=== PATIENT | female | born 1940 | race Caucasian/White ===

== ENCOUNTER 2017-01-14 12:23 | Inpatient (IN) | payer MEDICARE, OTHER ==
[~2017-01-14] VITALS: Ht 152.4 cm; Wt 83.9 kg
[2017-01-14 16:02] LABS: HEMOGLOBIN 15.6 gm/dl (12.3-15.3); RED BLOOD COUNT 5.31 M/UL (4.00-5.10); WHITE BLOOD COUNT 12.3 K/UL (4.5-11.0)
[2017-01-14] MEDS ORDERED: ALPRAZOLAM0.5 MG PO (16:13)
[2017-01-14] MEDS ORDERED: HYDRALAZINE HCL50 MG PO (16:14)
[2017-01-14] MEDS ORDERED: SINGULAIR10 MG PO (16:14)
[2017-01-14] MEDS ORDERED: WOMEN'S DAILY1 EAC1 PO (16:14)
[2017-01-14] MEDS ORDERED: DILANTIN100 MG PO (16:15)
[2017-01-14] MEDS ORDERED: K-TAB ER20 MEQ PO (16:16)
[2017-01-14] MEDS ORDERED: ZANTAC300 MG PO (16:16)
[2017-01-14] MEDS ORDERED: EVISTA60 MG PO (16:17)
[2017-01-14] MEDS ORDERED: DIOVAN HCT 3201 EAC1 PO (16:17)
[2017-01-14] MEDS ORDERED: ADVAIR 250-501 EACH INH (16:20)
[2017-01-14 16:33] LABS: BUN/CREATININE RATIO 36 (0-10)
[2017-01-14] MEDS ORDERED: FUROSEMIDE40 MG PO (18:26)
[2017-01-14] MEDS ORDERED: VITAMIN D250000 UNIT PO (18:27)
[2017-01-14] MEDS ORDERED: VOLTAREN100 GM TP (18:31)
[2017-01-15 06:06] LABS: HEMOGLOBIN 13.8 gm/dl (12.3-15.3); WHITE BLOOD COUNT 10.5 K/UL (4.5-11.0)
[2017-01-15 06:09] LABS: RED BLOOD COUNT 4.74 M/UL (4.00-5.10)
[2017-01-15 06:21] LABS: BUN/CREATININE RATIO 36 (0-10)
[2017-01-16 06:07] LABS: HEMOGLOBIN 14.6 gm/dl (12.3-15.3); RED BLOOD COUNT 5.01 M/UL (4.00-5.10)
[2017-01-16 06:19] LABS: WHITE BLOOD COUNT 15.1 K/UL (4.5-11.0)
[2017-01-16 06:22] LABS: BUN/CREATININE RATIO 34 (0-10)
[2017-01-17 07:33] LABS: RED BLOOD COUNT 4.85 M/UL (4.00-5.10)
[2017-01-17 07:44] LABS: BUN/CREATININE RATIO 36 (0-10)
[2017-01-18 04:55] LABS: HEMOGLOBIN 12.4 gm/dl (12.3-15.3)
[2017-01-18 04:56] LABS: RED BLOOD COUNT 4.29 M/UL (4.00-5.10); WHITE BLOOD COUNT 10.5 K/UL (4.5-11.0)
[2017-01-18 05:12] LABS: BUN/CREATININE RATIO 38 (0-10)
[2017-01-18] MEDS ORDERED: LEVAQUIN500 MG PO (12:57)
== END 2017-01-18 15:25 | disposition home health service (06) | DRG 189 ==
LOC: M/S 14:38
PROVIDERS: ADMIT Internal Medicine
DX: J96.01 Acute respiratory failure with hypoxia (principal); J15.9 Unspecified bacterial pneumonia; J44.0 Chronic obstructive pulmonary disease with (acute) lower respiratory infection; J45.901 Unspecified asthma with (acute) exacerbation; I10 Essential (primary) hypertension; G40.909 Epilepsy, unspecified, not intractable, without status epilepticus; M16.0 Bilateral primary osteoarthritis of hip; M17.0 Bilateral primary osteoarthritis of knee; M19.072 Primary osteoarthritis, left ankle and foot; M19.071 Primary osteoarthritis, right ankle and foot; R11.2 Nausea with vomiting, unspecified; E66.9 Obesity, unspecified; Z68.36 Body mass index [BMI] 36.0-36.9, adult; F41.9 Anxiety disorder, unspecified; Z79.51 Long term (current) use of inhaled steroids; Z79.899 Other long term (current) drug therapy; Z90.710 Acquired absence of both cervix and uterus; Z90.49 Acquired absence of other specified parts of digestive tract; Z98.890 Other specified postprocedural states; Z82.49 Family history of ischemic heart disease and other diseases of the circulatory system
CPT/HCPCS: 36415; 36600; 71010; 73630; 80048; 82803; 84132; 84550; 85025; 85027; 87040; 93971; 94640; 94664; 94760; 97116; 97530; 97535; J1650; J1885; J1956; J2550; J7050